=== PATIENT | female | born 1990 | race Caucasian/White ===

== ENCOUNTER 2018-09-04 04:18 | Emergency (ER) | payer BC ==
--- NOTE | 2018-09-04 04:45 | ERPHSYRPT ---
- History of Present Illness Time Seen by Provider: 09/04/18 04:43 Source: patient Exam Limitations: no limitations Patient Subjective Stated Complaint: pt states she woke up at 0130 and was dizzy. states when laying back, she feels ok. but is dizzy with standing or walking. Triage Nursing Assessment: pt alert and oriented. ambulatory with slow, steady gait noted. respirations nonlabored with lungs cta. skin pink warm and dry. pupils equal and reactive. bilat upper and lower strength equal and wnl. Physician History: pt states she woke up at 0130 and was dizzy. states when laying back, she feels ok. but is dizzy with standing or walking. no fever, no shortness of breath Timing/Duration: today Severity: mild Associated Symptoms: denies symptoms Allergies/Adverse Reactions: amoxicillin trihydrate [From Augmentin] Allergy (Verified 09/04/18 04:37) cefaclor [Cefaclor] Allergy (Verified 09/04/18 04:37) pt states she can take rocephin potassium clavulanate [From Augmentin] Allergy (Verified 09/04/18 04:37) Home Medications: Albuterol Sulfate [Proair Hfa] 8.5 gm IH Q4HPRN PRN 09/04/18 [History] Hx Tetanus, Diphtheria Vaccination/Date Given: Yes Hx Influenza Vaccination/Date Given: No Hx Pneumococcal Vaccination/Date Given: No Immunizations Up to Date: Yes - Review of Systems Constitutional: No Fever, No Chills Eyes: No Symptoms Ears, Nose, & Throat: No Symptoms Respiratory: No Cough, No Dyspnea Cardiac: No Chest Pain, No Edema, No Syncope Abdominal/Gastrointestinal: No Abdominal Pain, No Nausea, No Vomiting, No Diarrhea Genitourinary Symptoms: No Dysuria Musculoskeletal: No Back Pain, No Neck Pain Skin: No Rash Neurological: Dizziness, No Focal Weakness, No Sensory Changes Psychological: No Symptoms Endocrine: No Symptoms All Other Systems: Reviewed and Negative - Past Medical History Pertinent Past Medical History: Yes Neurological History: Other (syncope post dizzy spell age 15) ENT History: No Pertinent History Cardiac History: No Pertinent History Respiratory History: Asthma Endocrine Medical History: Hypoglycemia Musculoskeletal History: No Pertinent History GI Medical History: No Pertinent History History: No Pertinent History Psycho-Social History: No Pertinent History Female Reproductive Disorders: No Pertinent History - Past Surgical History Past Surgical History: Yes Female Surgical History: Section Other Surgical History: D AND C, c section x2 - Social History Smoking Status: Never smoker Exposure to second hand smoke: No Drug Use: none Patient Lives Alone: No - Female History Hx Last Menstrual Period: 08/26/18 Hx Now: No - Nursing Vital Signs Nursing Vital Signs: Initial Vital Signs Temperature 98.4 F 09/04/18 04:23 Pulse Rate 74 09/04/18 04:23 Respiratory Rate 16 09/04/18 04:23 Blood Pressure 116/75 09/04/18 04:23 O2 Sat by Pulse Oximetry 100 09/04/18 04:23 Pain Scale Pain Intensity 0 - Physical Exam General Appearance: no apparent distress, alert Eye Exam: PERRL/EOMI, eyes nml inspection Ears, Nose, Throat Exam: normal ENT inspection, TMs normal, pharynx normal, moist mucous membranes Neck Exam: normal inspection, non-tender, supple, full range of motion Respiratory Exam: normal breath sounds, lungs clear, No respiratory distress Cardiovascular Exam: regular rate/rhythm, normal heart sounds, normal peripheral pulses Gastrointestinal/Abdomen Exam: soft, normal bowel sounds, No tenderness, No mass Back Exam: normal inspection, normal range of motion, No CVA tenderness, No vertebral tenderness Extremity Exam: normal inspection, normal range of motion, pelvis stable Neurologic Exam: alert, oriented x 3, cooperative, normal mood/affect, nml cerebellar function, nml station & gait, sensation nml, No motor deficits Skin Exam: normal color, warm, dry, No rash Lymphatic Exam: No adenopathy SpO2: 100 - Course Nursing assessment & vital signs reviewed: Yes Ordered Tests: Active Orders 24 hr Category Date Time Status CBC W DIFF Stat Lab 09/04/18 04:58 Completed CMP Stat Lab 09/04/18 04:58 Completed HCG QUALITATIVE,SERUM Stat Lab 09/04/18 04:58 Completed UA W/RFX UR CULTURE Stat Lab 09/04/18 05:05 Completed Lab/Rad Data: Laboratory Result Diagrams 09/04/18 04:58 09/04/18 04:58 Laboratory Results 09/04/18 09/04/18 09/04/18 Range/Units 05:05 04:58 04:58 WBC (4.0-10.5) K/mm3 RBC (4.1-5.4) M/mm3 Hgb (12.0-16.0) gm/dl Hct (35-47) % MCV (78-100) fl MCH (26-32) pg MCHC (32-36) g/dl RDW (11.5-14.0) % Plt Count (150-450) K/mm3 MPV (6-9.5) fl Gran % (36.0-66.0) % Eos # (Auto) (0-0.5) Absolute Lymphs (auto) (1.0-4.6) Absolute Monos (auto) (0.0-1.3) Lymphocytes % (24.0-44.0) % Monocytes % (0.0-12.0) % Eosinophils % (0.00-5.0) % Basophils % (0.0-0.4) % Absolute Granulocytes (1.4-6.9) Basophils # (0-0.4) Sodium 140 (137-145) mmol/L Potassium 3.7 (3.5-5.1) mmol/L Chloride 107 (98-107) mmol/L Carbon Dioxide 27 (22-30) mmol/L Anion Gap 10.2 (5-15) MEQ/L BUN 15 (7-17) mg/dL Creatinine 0.74 (0.52-1.04) mg/dL Estimated GFR > 60.0 ML/MIN Glucose 91 (74-106) mg/dL Calcium 9.4 (8.4-10.2) mg/dL Total Bilirubin 0.50 (0.2-1.3) mg/dL AST 17 (14-36) U/L ALT 18 (0-35) U/L Alkaline Phosphatase 39 (38-126) U/L Serum Total Protein 7.5 (6.3-8.2) g/dL Albumin 4.4 (3.5-5.0) g/dL Serum , Qual NEGATIVE (Negative) Urine Color STRAW (YELLOW) Urine Appearance CLEAR (CLEAR) Urine pH 5.0 (5-6) Ur Specific [place] 1.003 (1.005-1.025) Urine Protein NEGATIVE (Negative) Urine Ketones NEGATIVE (NEGATIVE) Urine Blood NEGATIVE (0-5) Yuriy/ul Urine Nitrite NEGATIVE (NEGATIVE) Urine Bilirubin NEGATIVE (NEGATIVE) Urine Urobilinogen NEGATIVE (0-1) mg/dL Ur Leukocyte Esterase NEGATIVE (NEGATIVE) Urine WBC (Auto) NONE (0-5) /HPF Urine RBC (Auto) NONE (0-2) /HPF U Epithel Cells (Auto) NONE (FEW) /HPF Urine Bacteria (Auto) NONE SEEN (NEGATIVE) /HPF Urine Culture Reflexed NO (NO) Urine Glucose NEGATIVE (NEGATIVE) mg/dL 09/04/18 Range/Units 04:58 WBC 5.5 (4.0-10.5) K/mm3 RBC 4.61 (4.1-5.4) M/mm3 Hgb 14.2 (12.0-16.0) gm/dl Hct 41.3 (35-47) % MCV 89.6 (78-100) fl MCH 30.8 (26-32) pg MCHC 34.4 (32-36) g/dl RDW 12.6 (11.5-14.0) % Plt Count 151 (150-450) K/mm3 MPV 12.0 H (6-9.5) fl Gran % 61.2 (36.0-66.0) % Eos # (Auto) 0.09 (0-0.5) Absolute Lymphs (auto) 1.45 (1.0-4.6) Absolute Monos (auto) 0.56 (0.0-1.3) Lymphocytes % 26.5 (24.0-44.0) % Monocytes % 10.2 (0.0-12.0) % Eosinophils % 1.6 (0.00-5.0) % Basophils % 0.5 (0.0-0.4) % Absolute Granulocytes 3.35 (1.4-6.9) Basophils # 0.03 (0-0.4) Sodium (137-145) mmol/L Potassium (3.5-5.1) mmol/L Chloride (98-107) mmol/L Carbon Dioxide (22-30) mmol/L Anion Gap (5-15) MEQ/L BUN (7-17) mg/dL Creatinine (0.52-1.04) mg/dL Estimated GFR ML/MIN Glucose (74-106) mg/dL Calcium (8.4-10.2) mg/dL Total Bilirubin (0.2-1.3) mg/dL AST (14-36) U/L ALT (0-35) U/L Alkaline Phosphatase (38-126) U/L Serum Total Protein (6.3-8.2) g/dL Albumin (3.5-5.0) g/dL Serum , Qual (Negative) Urine Color (YELLOW) Urine Appearance (CLEAR) Urine pH (5-6) Ur Specific [place] (1.005-1.025) Urine Protein (Negative) Urine Ketones (NEGATIVE) Urine Blood (0-5) Yuriy/ul Urine Nitrite (NEGATIVE) Urine Bilirubin (NEGATIVE) Urine Urobilinogen (0-1) mg/dL Ur Leukocyte Esterase (NEGATIVE) Urine WBC (Auto) (0-5) /HPF Urine RBC (Auto) (0-2) /HPF U Epithel Cells (Auto) (FEW) /HPF Urine Bacteria (Auto) (NEGATIVE) /HPF Urine Culture Reflexed (NO) Urine Glucose (NEGATIVE) mg/dL - Progress Progress: improved - Departure Departure Disposition: Home Clinical Impression: Dizziness Condition: Stable Critical Care Time: No Referrals: VIKY MARQUEZ [Primary Care Provider] - Instructions: Dizziness, Nonvertigo, (DC) Additional Instructions: Discharge/Care Plan DALLIN HARVEY was seen on 09/04/18 in the Emergency Room. The patient was counseled regarding Diagnosis,Lab results, Imaging studies, need for follow up and when to return to the Emergency Room. Prescriptions given: Discharge Note I have spoken with the patient and/or caregivers. I have explained the patient' s condition, diagnosis and treatment plan based on the information available to me at this time. I have answered the patient's and/or caregiver's questions and addressed any concerns. The patient and/or caregivers have as good understanding of the patient's diagnosis, condition and treatment plan as can be expected at this point. The vital signs have been stable. The patient's condition is stable and appropriate for discharge from the emergency department. The patient will pursue further outpatient evaluation with the primary care physician or other designated or consulting physician as outlined in the discharge instructions. The patient and/or caregivers are agreeable to this plan of care and follow-up instructions have been explained in detail. The patient and/or caregivers have received these instruction. The patient/and or caregivers are aware that any significant change in condition or worsening of symptoms should prompt an immediate return to this or the closest emergency department or call 911.
[2018-09-04 05:01] LABS: BASOPHIL % 0.5 % (0.0-0.4); Basophil (Absolute #) 0.03 (0-0.4); Eosinophil % 1.6 % (0.00-5.0); Eosinophil (Absolute #) 0.09 (0-0.5); Granulocyte Absolute (ANC) 3.35 (1.4-6.9); Granulocytes % 61.2 % (36.0-66.0); Hematocrit 41.3 % (35-47); Hemoglobin 14.2 gm/dl (12.0-16.0); Lymphocyte (Absolute #) 1.45 (1.0-4.6); Lymphocytes % 26.5 % (24.0-44.0); Mean Cell Volume 89.6 fl (78-100); Mean Corpuscular Hemoglobin 30.8 pg (26-32); Mean Corpuscular Hgb Concent. 34.4 g/dl (32-36); Monocyte (Absolute #) 0.56 (0.0-1.3); Monocytes % 10.2 % (0.0-12.0); Platelet Count 151 K/mm3 (150-450); Red Blood Count 4.61 M/mm3 (4.1-5.4); Red Cell Distribution Width 12.6 % (11.5-14.0); White Blood Count 5.5 K/mm3 (4.0-10.5)
[2018-09-04 05:10] LABS: Appearance CLEAR (CLEAR); Bilirubin NEGATIVE (NEGATIVE); Blood NEGATIVE Ery/ul (0-5); Glucose NEGATIVE (NEGATIVE); Ketones NEGATIVE (NEGATIVE); Leukocyte Esterase NEGATIVE (NEGATIVE); Nitrite NEGATIVE (NEGATIVE); Protein,Urine Dip NEGATIVE (Negative); Specific Gravity 1.003 (1.005-1.025); Urobilinogen NEGATIVE mg/dL (0-1)
[2018-09-04 05:14] LABS: ALBUMIN 4.4 g/dL (3.5-5.0); ALKALINE PHOSPHATASE 39 U/L (38-126); ANION GAP 10.2 MEQ/L (5-15); BLOOD UREA NITROGEN 15 mg/dL (7-17); CHLORIDE 107 mmol/L (98-107); Calcium 9.4 mg/dL (8.4-10.2); Carbon Dioxide 27 mmol/L (22-30); Creatinine 1 0.74 mg/dL (0.52-1.04); Glucose 91 mg/dL (74-106); Potassium 3.7 mmol/L (3.5-5.1); SGOT/AST 17 U/L (14-36); SGPT/ALT 18 U/L (0-35); SODIUM 140 mmol/L (137-145); Total Protein 7.5 g/dL (6.3-8.2)
[2018-09-04 05:15] LABS: Bacteria NONE SEEN /HPF (NEGATIVE)
[2018-09-04 05:20] VITALS: BP 105/66; PULSE 71
[2018-09-04 05:26] VITALS: O2SAT 100
== END 2018-09-04 05:36 | disposition home or self-care (01) ==
LOC: ED 04:18
DX: R42 Dizziness and giddiness (principal)
CPT/HCPCS: 36415; 80053; 81001; 81025; 85025; 99283

== ENCOUNTER 2020-01-07 18:36 | Emergency (ER) | payer BC, OTHER ==
--- NOTE | 2020-01-07 18:43 | ERPHSYRPT ---
- History of Present Illness Time Seen by Provider: 01/07/20 18:43 Source: patient Exam Limitations: no limitations Physician History: This is a 29-year-old white female who underwent a section approximately 3 weeks ago. Similar to her last , the patient had a normal-appearing postoperative incision site but a mild amount of suprapubic discomfort with brownish discharge. This occurred approximately 2 to 3 days ago. Patient states that last time her symptoms resolved with an injection of Rocephin followed by more antibiotics. No CAT scan or any other radiographic study was performed. Patient prefers no radiographic studies at this time. She prefers injection of antibiotics followed by outpatient antibiotic therapy and she will see her sheep herder on 01/08/2030. Patient has had no nausea vomiting or diarrhea. She is not febrile. Timing/Duration: day(s) (2-3) Quality: painful Severity: mild (Postop incision) Location: other (Pfannenstiel incision) Associated Symptoms: other (Mild amount of vaginal brownish discharge) Allergies/Adverse Reactions: amoxicillin trihydrate [From Augmentin] Allergy (Verified 01/07/20 18:58) cefaclor [Cefaclor] Allergy (Verified 01/07/20 18:58) pt states she can take rocephin potassium clavulanate [From Augmentin] Allergy (Verified 01/07/20 18:58) Hx Tetanus, Diphtheria Vaccination/Date Given: Yes Hx Influenza Vaccination/Date Given: No Hx Pneumococcal Vaccination/Date Given: No Travel Risk - International Travel Have you traveled outside of the country in past 3 weeks: No - Coronavirus Screening Are you exhibiting any of the following symptoms?: No Close contact with a COVID-19 positive Pt in past 14-21 Days: No - Review of Systems Constitutional: No Symptoms Eyes: No Symptoms Ears, Nose, & Throat: No Symptoms Respiratory: No Symptoms Cardiac: No Symptoms Abdominal/Gastrointestinal: Abdominal Pain (Filed postop incisional) Genitourinary Symptoms: Vaginal Discharge (Mild amount brownish) Musculoskeletal: No Symptoms Skin: No Symptoms Neurological: No Symptoms Psychological: No Symptoms Endocrine: No Symptoms Hematologic/Lymphatic: No Symptoms Immunological/Allergic: No Symptoms All Other Systems: Reviewed and Negative - Past Medical History Pertinent Past Medical History: Yes Neurological History: Other (syncope post dizzy spell age 15) ENT History: No Pertinent History Cardiac History: No Pertinent History Respiratory History: Asthma Endocrine Medical History: Hypoglycemia Musculoskeletal History: No Pertinent History GI Medical History: No Pertinent History History: No Pertinent History Psycho-Social History: No Pertinent History Female Reproductive Disorders: No Pertinent History - Past Surgical History Past Surgical History: Yes Female Surgical History: Section Other Surgical History: D AND C, c section x2 - Social History Smoking Status: Never smoker Exposure to second hand smoke: No Drug Use: none Patient Lives Alone: No - Nursing Vital Signs Nursing Vital Signs: Initial Vital Signs Temperature 97.7 F 01/07/20 18:42 Pulse Rate 65 01/07/20 18:42 Respiratory Rate 18 01/07/20 18:42 Blood Pressure 128/84 01/07/20 18:42 O2 Sat by Pulse Oximetry 99 01/07/20 18:42 Pain Scale Pain Intensity 2 - Physical Exam General Appearance: no apparent distress, alert, anxiety Eye Exam: PERRL/EOMI Ears, Nose, Throat Exam: normal ENT inspection, moist mucous membranes Neck Exam: normal inspection, non-tender, supple, full range of motion Respiratory Exam: normal breath sounds, lungs clear, airway intact, No chest tenderness, No respiratory distress Cardiovascular Exam: regular rate/rhythm, normal heart sounds, normal peripheral pulses Gastrointestinal/Abdomen Exam: soft, normal bowel sounds, tenderness (Mild tenderness along the incision line. There is no drainage. There is no redness there is no foul odor and no expressible fluid present. There is mild tenderness along this incision site.) Pelvic Exam: not done Rectal Exam: not done Extremity Exam: normal inspection, normal range of motion, pelvis stable Neurologic Exam: alert, oriented x 3, cooperative, oil well shooter II-XII nml as tested, normal mood/affect, nml cerebellar function, nml station & gait, sensation nml Skin Exam: normal color, warm, dry Lymphatic Exam: No adenopathy SpO2 Interpretation: normal O2 Delivery: Room Air - Course Nursing assessment & vital signs reviewed: Yes Ordered Tests: Medication Summary Discontinued Medications Generic Name Dose Route Start Last Admin Trade Name Freq PRN Reason Stop Dose Admin Ceftriaxone Sodium 1,000 mg 01/07/20 18:55 Rocephin 1000 Mg Inj IM 01/07/20 18:56 STAT ONE - Progress Progress: unchanged Counseled pt/family regarding: diagnosis, need for follow-up, rad results - Departure Departure Disposition: Home Clinical Impression: Vaginal discharge Condition: Stable Critical Care Time: No Referrals: VIKY JACKSON [Primary Care Provider] - Additional Instructions: Plenty fluids. Take medication as prescribed. Follow-up with your sheep herder on 01/09/2020 for further management.
[2020-01-07] MEDS ORDERED: Rocephin 1000 MG INJ IM ONE (18:55)
[2020-01-07 18:58] VITALS: O2SAT 99
[2020-01-07] MEDS ORDERED: XYLOCAINE 1% HCL 20 ML MDV ONE (19:23)
[2020-01-07] MEDS ORDERED: Rocephin 1000 MG INJ ONE (19:23)
[2020-01-07] MEDS ORDERED: Flagyl 500 MG PO ONE (19:27)
[2020-01-07] MEDS ORDERED: Flagyl 500 MG ONE (19:31)
[2020-01-07 20:01] VITALS: BP 127/78; PULSE 73
== END 2020-01-07 19:53 | disposition home or self-care (01) ==
LOC: ED 18:36
DX: N89.8 Other specified noninflammatory disorders of vagina (principal)
CPT/HCPCS: 96372; 99284; J0696; A9270-GY

== ENCOUNTER 2020-03-14 18:14 | Emergency (ER) | payer OTHER ==
[2020-03-14 18:32] VITALS: BP 135/82; PULSE 88; O2SAT 100
[2020-03-14] MEDS ORDERED: Sodium Chloride 0.9% 1000 ML 1,000 ML IV STA (18:32)
[2020-03-14] MEDS ORDERED: Sodium Chloride 0.9% 1000 ML 1,000 ML ONE (18:34)
--- NOTE | 2020-03-14 18:37 | ERPHSYRPT ---
- History of Present Illness Source: patient Exam Limitations: no limitations Patient Subjective Stated Complaint: Vaginal bleeding Triage Nursing Assessment: Patient ambulated back to ED and transferred self to bed. Patient A+O X3. patient's skin pink, warm and dry. Patient complains of vaginal bleeding that started yesterday. Patient had and Tubal ligation on 12/19/2019. Patient states this is her first period since giving . Patient denies pain or discomfort. Patient states she is saturating her pad every 2 hours that started at 0500 am. Patient complains of hot flashes. Timing/Duration: yesterday, gradual onset, worse Activites at Onset: rest Hx Tetanus, Diphtheria Vaccination/Date Given: Yes Hx Influenza Vaccination/Date Given: No Hx Pneumococcal Vaccination/Date Given: No <TIANA MCLAIN - Last Filed: 03/14/20 18:37> <JULIA BRYANT - Last Filed: 03/14/20 19:22> - History of Present Illness Time Seen by Provider: 03/14/20 18:21 Physician History: 30 years old 3 para 3 status post 12/19/2019 with bilateral tubal ligation with history of heavy menstrual cycles presented in the ER with heavy vaginal bleeding since morning. Patient report she resumed her cycle yesterday, was light bleeding but since morning she is having heavy bleeding and at times she has to change her pad every 2 hourly. She had minimal abdominal cramping which is improved now. Denies passing any clots or tissues. Reports h aving history of heavy cycle but not like this. Denies taking any control pills or blood thinners. Denies any chest pain palpitations shortness of breath, feeling dizzy lightheaded or near syncope but feels fatigued. (TIANA MCLAIN) Allergies/Adverse Reactions: amoxicillin trihydrate [From Augmentin] Allergy (Verified 03/14/20 18:22) cefaclor [Cefaclor] Allergy (Verified 03/14/20 18:22) pt states she can take rocephin potassium clavulanate [From Augmentin] Allergy (Verified 03/14/20 18:22) Home Medications: No Reportable Medications [No Reported Medications] 03/14/20 [History] Travel Risk - International Travel Have you traveled outside of the country in past 3 weeks: No - Coronavirus Screening Are you exhibiting any of the following symptoms?: No Close contact with a COVID-19 positive Pt in past 14-21 Days: No <VETO MCLAINMIR - Last Filed: 03/14/20 18:37> - Review of Systems Constitutional: Fatigue Eyes: No Symptoms Ears, Nose, & Throat: No Symptoms Respiratory: No Symptoms Cardiac: No Symptoms Abdominal/Gastrointestinal: No Symptoms Genitourinary Symptoms: Vaginal Bleeding Musculoskeletal: No Symptoms Skin: No Symptoms Neurological: No Symptoms Psychological: No Symptoms Endocrine: No Symptoms <EUSEBIO MCLAINR - Last Filed: 03/14/20 18:37> - Past Medical History Pertinent Past Medical History: Yes Neurological History: Other ENT History: No Pertinent History Cardiac History: No Pertinent History Respiratory History: Asthma Endocrine Medical History: Hypoglycemia Musculoskeletal History: No Pertinent History GI Medical History: No Pertinent History History: No Pertinent History Psycho-Social History: No Pertinent History Female Reproductive Disorders: No Pertinent History - Past Surgical History Past Surgical History: Yes Female Surgical History: Section, Tubal Ligation Other Surgical History: D AND C, c section x3 - Social History Smoking Status: Never smoker Exposure to second hand smoke: No Drug Use: none Patient Lives Alone: No - Female History Hx Now: No <CHEMO,TIANA - Last Filed: 03/14/20 18:37> - Physical Exam General Appearance: no apparent distress Eye Exam: PERRL/EOMI, eyes nml inspection Ears, Nose, Throat Exam: normal ENT inspection, pharynx normal Neck Exam: normal inspection, supple, full range of motion Respiratory Exam: normal breath sounds, lungs clear Cardiovascular Exam: regular rate/rhythm, normal heart sounds Gastrointestinal/Abdomen Exam: soft, normal bowel sounds, No tenderness Back Exam: normal inspection, normal range of motion Extremity Exam: normal inspection, normal range of motion Neurologic Exam: alert, oriented x 3, cooperative Skin Exam: normal color SpO2 Interpretation: normal SpO2: 100 O2 Delivery: Room Air <VETO MCLAINMIR - Last Filed: 03/14/20 18:37> - Nursing Vital Signs Nursing Vital Signs: Initial Vital Signs Temperature 99.0 F 03/14/20 18:24 Pulse Rate 88 03/14/20 18:24 Respiratory Rate 18 03/14/20 18:24 Blood Pressure 135/82 03/14/20 18:24 O2 Sat by Pulse Oximetry 100 03/14/20 18:24 Pain Scale Pain Intensity 0 Ordered Tests: Active Orders 24 hr Category Date Time Status IV Insertion STAT Care 03/14/20 18:32 Active CBC W DIFF Stat Lab 03/14/20 18:33 Completed CULTURE,URINE Stat Lab 03/14/20 18:33 Received HCG,QUALITATIVE URINE Stat Lab 03/14/20 18:33 Completed UA W/RFX UR CULTURE Stat Lab 03/14/20 18:33 Completed Medication Summary Generic Name Dose Route Start Last Admin Trade Name Freq PRN Reason Stop Dose Admin Sodium Chloride 1,000 mls @ 999 mls/hr 03/14/20 18:32 03/14/20 18:35 Sodium Chloride 0.9% 1000 Ml IV 03/14/20 19:32 999 mls/hr .[id number] STA Administration Discontinued Medications Generic Name Dose Route Start Last Admin Trade Name Freq PRN Reason Stop Dose Admin Sodium Chloride Confirm 03/14/20 18:34 Sodium Chloride 0.9% 1000 Ml Administered 03/14/20 18:35 Dose 1,000 mls @ ud .ROUTE .STK-MED ONE Lab/Rad Data: Laboratory Result Diagrams 03/14/20 18:33 Laboratory Results 03/14/20 03/14/20 03/14/20 Range/Units 18:33 18:33 18:33 WBC 5.3 (4.0-10.5) K/mm3 RBC 4.95 (4.1-5.4) M/mm3 Hgb 13.8 (12.0-16.0) gm/dl Hct 42.6 (35-47) % MCV 86.1 (78-100) fl MCH 27.9 (26-32) pg MCHC 32.4 (32-36) g/dl RDW 14.7 H (11.5-14.0) % Plt Count 169 (150-450) K/mm3 MPV 12.4 H (7.5-11.0) fl Gran % 60.1 (36.0-66.0) % Eos # (Auto) 0.13 (0-0.5) Absolute Lymphs (auto) 1.43 (1.0-4.6) Absolute Monos (auto) 0.55 (0.0-1.3) Lymphocytes % 26.8 (24.0-44.0) % Monocytes % 10.3 (0.0-12.0) % Eosinophils % 2.4 (0.00-5.0) % Basophils % 0.4 (0.0-0.4) % Absolute Granulocytes 3.20 (1.4-6.9) Basophils # 0.02 (0-0.4) Urine Color YELLOW (YELLOW) Urine Appearance CLEAR (CLEAR) Urine pH 6.0 (5-6) Ur Specific [place] 1.030 (1.005-1.025) Urine Protein 30 (Negative) Urine Ketones NEGATIVE (NEGATIVE) Urine Blood LARGE (0-5) Yuriy/ul Urine Nitrite NEGATIVE (NEGATIVE) Urine Bilirubin NEGATIVE (NEGATIVE) Urine Urobilinogen NEGATIVE (0-1) mg/dL Ur Leukocyte Esterase NEGATIVE (NEGATIVE) Urine WBC (Auto) 0-2 (0-5) /HPF Urine RBC (Auto) >101 (0-2) /HPF U Epithel Cells (Auto) NONE (FEW) /HPF Urine Bacteria (Auto) NONE (NEGATIVE) /HPF Urine Mucus (Auto) SLIGHT (NEGATIVE) /HPF Urine Culture Reflexed YES (NO) Urine Glucose NEGATIVE (NEGATIVE) mg/dL Urine HCG, Qual NEGATIVE (Negative) - Progress Air Movement: good <TIANA MCLAIN - Last Filed: 03/14/20 18:37> - Progress Blood Culture(s) Obtained: No Antibiotics given: No Counseled pt/family regarding: lab results, diagnosis, need for follow-up <JULIA BRYANT - Last Filed: 03/14/20 19:22> - Progress Progress Note: 03/14/20 18:56 30 years old is evaluated for heavy bleeding on resumption of regular cycle after recent . Patient is not tachycardic or tachypneic, denies any chest pain palpitations shortness of breath, no dizzy or lightheaded. She does have history of heavy cycles. She is given fluid bolus, will obtain baseline labs which are pending, care is transferred to Dr. Bryant at shift change for reevaluation and final disposition. 03/14/20 18:38 (TIANA MCLAIN) 03/14/20 19:21 Denies dizziness and is not lightheaded. She is hemodynamically stable. Her hemoglobin is over 13. We will discharge her to home (JULIA BRYANT) <TIANA MCLAIN - Last Filed: 03/14/20 18:37> - Departure Departure Disposition: Home Critical Care Time: No <JULIA BRYANT - Last Filed: 03/14/20 19:22> - Departure Clinical Impression: Heavy menstrual period Condition: Stable Referrals: VIKY JACKSON [Primary Care Provider] - Additional Instructions: Call your primary care physician tomorrow for further management.
[2020-03-14 18:47] LABS: BASOPHIL % 0.4 % (0.0-0.4); Basophil (Absolute #) 0.02 (0-0.4); Eosinophil % 2.4 % (0.00-5.0); Eosinophil (Absolute #) 0.13 (0-0.5); Hematocrit 42.6 % (35-47); Hemoglobin 13.8 gm/dl (12.0-16.0); Lymphocyte (Absolute #) 1.43 (1.0-4.6); Lymphocytes % 26.8 % (24.0-44.0); Mean Cell Volume 86.1 fl (78-100); Mean Corpuscular Hemoglobin 27.9 pg (26-32); Mean Corpuscular Hgb Concent. 32.4 g/dl (32-36); Mean Platelet Volume 12.4 fl (7.5-11.0); Monocyte (Absolute #) 0.55 (0.0-1.3); Monocytes % 10.3 % (0.0-12.0); Neutrophil % 60.1 % (36.0-66.0); Platelet Count 169 K/mm3 (150-450); Red Blood Count 4.95 M/mm3 (4.1-5.4); Red Cell Distribution Width 14.7 % (11.5-14.0); White Blood Count 5.3 K/mm3 (4.0-10.5)
[2020-03-14 19:04] LABS: Appearance CLEAR (CLEAR); Bilirubin NEGATIVE (NEGATIVE); Blood LARGE Ery/ul (0-5); Glucose NEGATIVE (NEGATIVE); Ketones NEGATIVE (NEGATIVE); Leukocyte Esterase NEGATIVE (NEGATIVE); Mucus SLIGHT /HPF (NEGATIVE); Nitrite NEGATIVE (NEGATIVE); Protein,Urine Dip 30 (Negative); Urobilinogen NEGATIVE mg/dL (0-1); WBC 0-2 /HPF (0-5)
[2020-03-14 19:09] LABS: RBC >101 /HPF (0-2)
== END 2020-03-14 19:32 | disposition home or self-care (01) ==
LOC: ED 18:14
DX: N92.0 Excessive and frequent menstruation with regular cycle (principal)
CPT/HCPCS: 36000; 36415; 81001; 84703; 85025; 87086; 99284

== ENCOUNTER 2023-12-05 18:45 | Emergency (ER) | payer BC ==
[2023-12-05 21:29] VITALS: RESP 18; TEMP 98.8
--- NOTE | 2023-12-05 21:58 | ERPHSYRPT ---
- History of Present Illness Source: patient Exam Limitations: no limitations Patient Subjective Stated Complaint: L foot injury and pain, horse stepped on patient's L foot Triage Nursing Assessment: pt wheeled to room by staff, pt transferred to bed by self from wheelchair, spouse at bedside, pt c/o L foot pain after horse stepped on, pt states horse is roughly 1400 lbs, top of L foot swollen, pt denies any pain in digits or ankle. Physician History: Patient's foot was stepped on by horse. Her left foot. On the dorsum. It is towards the distal third of the metatarsals. There are some bruising and some mild edema. Walking makes it worse. Rest ice and elevate makes it better. There is no other trauma. It happened just prior to arrival. Allergies/Adverse Reactions: amoxicillin trihydrate [From Augmentin] Allergy (Verified 12/05/23 21:22) cefaclor [Cefaclor] Allergy (Verified 12/05/23 21:22) pt states she can take rocephin potassium clavulanate [From Augmentin] Allergy (Verified 12/05/23 21:22) Home Medications: No Reportable Medications [No Reported Medications] 03/14/20 [History] Hx Tetanus, Diphtheria Vaccination/Date Given: Yes Hx Influenza Vaccination/Date Given: No Hx Pneumococcal Vaccination/Date Given: No Travel Risk - International Travel Have you traveled outside of the country in past 3 weeks: No - Emerging Infectious Disease Are you exhibiting symptoms associated with any current EIDs: No - Review of Systems Constitutional: No Symptoms Eyes: No Symptoms Neurological: No Symptoms All Other Systems: Reviewed and Negative - Past Medical History Pertinent Past Medical History: Yes Neurological History: Other ENT History: No Pertinent History Cardiac History: No Pertinent History Respiratory History: Asthma Endocrine Medical History: Hypoglycemia Musculoskeletal History: No Pertinent History GI Medical History: No Pertinent History History: No Pertinent History Psycho-Social History: No Pertinent History Female Reproductive Disorders: No Pertinent History - Past Surgical History Past Surgical History: Yes Neuro Surgical History: No Pertinent History Cardiac: No Pertinent History Respiratory: No Pertinent History Gastrointestinal: No Pertinent History Genitourinary: No Pertinent History Musculoskeletal: No Pertinent History Female Surgical History: Dilation & Curettage, Section, Tubal Ligation Other Surgical History: D AND C, c section x3 - Female History Hx Last Menstrual Period: 11/18/23 Hx Now: No - Social History Smoking Status: Never smoker Exposure to second hand smoke: No Drug Use: none Patient Lives Alone: No - Social Determinants of Health Will the patient participate in the screening: Yes Do you worry about a steady place to live?: No Do you have any problems with any of the following?: No known problems In the past 12 months,have you had to go without utilities?: No Transportation Issues: No Has anyone in your support network made you feel unsafe?: No Have you or anyone in your house had to go without enough: No - Nursing Vital Signs Nursing Vital Signs: Initial Vital Signs Temperature 98.8 F 12/05/23 21:22 Pulse Rate 72 12/05/23 21:22 Respiratory Rate 18 12/05/23 21:22 Blood Pressure 118/49 12/05/23 21:22 O2 Sat by Pulse Oximetry 100 12/05/23 21:22 Pain Scale Pain Intensity 2 - Physical Exam General Appearance: no apparent distress Eyes, Ears, Nose, Throat Exam: normal ENT inspection Knees Exam: bilateral knee: non-tender, normal inspection, normal range of motion Ankle Exam: bilateral ankle: non-tender, normal inspection, normal range of motion Foot Exam: left foot: deformity, ecchymosis, pain, soft tissue tenderness, swelling Neuro/Tendon Exam: normal sensation, normal motor functions, normal tendon functions Mental Status Exam: alert, oriented x 3 Skin Exam: normal color, warm SpO2: 100 - Course Nursing assessment & vital signs reviewed: Yes Ordered Tests: Active Orders 24 hr Category Date Time Status Crutches STAT Care 12/05/23 21:34 Active FOOT (MINIMUM 3 VIEWS) Stat Exams 12/05/23 21:34 Ordered Lab/Rad Data: X-rays were interpreted by me. I saw no acute fractures. - Progress Progress Note: 12/05/23 21:56 X-ray was done as interpreted by me. No fractures were seen. At this time I think she just has a foot contusion. I would have her rest ice elevate she was given crutches for here to go home with. Medical Desision Making - Independent Historian Additional History obtained from: Spouse - Diagnostic Testing Diagnostic test were ordered, analyzed, and reviewed by me: Yes - Departure Departure Disposition: Home Clinical Impression: Contusion of left foot Condition: Stable Critical Care Time: No Referrals: VIKY ZHAO [Primary Care Provider] - Follow up/PCP as directed Instructions: Contusion (DC)
[2023-12-05 22:07] VITALS: BP 117/79; PULSE 61; O2SAT 99
--- NOTE | 2023-12-06 07:22 | XRAY ---
Indication: Pain following trauma. Comparison: None 3 nonweightbearing views left foot demonstrates diffuse soft tissue swelling. No other bony, articular, or soft tissue abnormalities.
== END 2023-12-05 22:16 | disposition home or self-care (01) ==
LOC: ED 18:45
DX: S90.32XA Contusion of left foot, initial encounter (principal); W55.12XA Struck by horse, initial encounter
CPT/HCPCS: 73630; 99282